=== PATIENT | female | born 1970 | race Hispanic/Latino ===

== ENCOUNTER 2017-06-13 00:37 | Observation (INO) | payer BC, SELFPAY ==
[2017-06-13 01:23] LABS: #Basophils 0.1 thou/uL (0.0-0.2); #Eosinphils 0.2 thou/uL (0.0-0.7); #Lymphocytes 3.6 thou/uL (1.20-3.40); #Monocytes 0.9 thou/uL (0.11-0.59); %Basophils 0.8 % (0.0-1.0); %Eosinophils 1.7 % (0.0-10.0); %Lymphocytes 30.4 % (21.0-51.0); %Monocytes 7.9 % (0.0-10.0); Hematocrit 46.2 % (36.0-47.0); Mean Platelet Volume 7.6 fL (7.4-10.4); Red Blood Cell (RBC) Count 4.96 mill/uL (4.20-5.40); White Blood Cell (WBC) Count 11.8 thou/uL (4.8-10.8)
[2017-06-13 01:49] LABS: ALT (SGPT) 30 U/L (8-55); AST (SGOT) 24 U/L (5-34); Alkaline Phosphatase 119 U/L (40-150); Anion Gap 17 mmol/L (10-20); BUN (Urea Nitrogen) 13 mg/dL (7.0-18.7); Bilirubin, Total 0.3 mg/dL (0.2-1.2); CK (CPK) 86 U/L (29-168); Calc. Creatinine Clearance 0 mL/min (70-130); Carbon Dioxide 20 mmol/L (22-29); Chloride 103 mmol/L (98-107); Estimated GFR-MDRD 81; Globulin 3.5 g/dL (2.4-3.5); Lipase 29 U/L (8-78); Protein, Total 7.7 g/dL (6.0-8.3)
[2017-06-13 01:54] LABS: Troponin I Less than 0.010 ng/mL (< 0.028)
[2017-06-13] MEDS ORDERED: Nitroglycerin 0.4 MG TAB (25 Tab Bottle) ONE (01:55)
[2017-06-13] MEDS ORDERED: Acetaminophen 325 MG TAB ONE (02:46)
[2017-06-13] MEDS ORDERED: Acetaminophen 325 MG TAB PO PRN (04:18)
[2017-06-13] MEDS ORDERED: Aspirin 325 MG TAB PO SCH ×2 (04:30→09:00)
[2017-06-13 04:32] VITALS: BMI 34.6
[2017-06-13 05:16] LABS: Troponin I Less than 0.010 ng/mL (< 0.028)
[2017-06-13] MEDS ORDERED: Ondansetron ODT 4 MG TAB PO PRN (05:21)
[2017-06-13] MEDS ORDERED: Labetalol HCl 100 MG/20 ML VIAL SLOW IVP PRN (05:28)
[2017-06-13] MEDS: Ibuprofen 600 MG TAB PO PRN ×2 (07:57→18:12)
[2017-06-13 08:02] LABS: Hemoglobin A1c 5.6 % (4.0-6.0)
[2017-06-13 08:20] LABS: Troponin I Less than 0.010 ng/mL (< 0.028)
[2017-06-13] MEDS ORDERED: FLU VACC QS2017-18 36 mo. & older 0.5 ML SYRINGE IM ONE (09:00)
--- NOTE | 2017-06-13 09:28 | RAD ---
CHEST 1 VIEW: HISTORY: Chest pain. COMPARISON: 02/07/12. FINDINGS: Cardiac silhouette is magnified by projection. Pulmonary vasculature is unremarkable. Mediastinum is midline. There is no lobar consolidation or evidence of pneumothorax. IMPRESSION: No active cardiopulmonary abnormalities are demonstrated. POS: [facility]
[2017-06-13] MEDS: Nitroglycerin 0.4 MG TAB (25 Tab Bottle) SL PRN ×2 (10:13→10:21)
[2017-06-13] MEDS: Acetaminophen 325 MG TAB PO PRN ×2 (10:28→20:11)
[2017-06-13] MEDS ORDERED: hydrOXYzine 25 MG TAB PO SCH (10:45)
[2017-06-13] MEDS ORDERED: Nitroglycerin 2% Ointment 1 INCH/1 GM Packet TOP SCH ×2 (11:45→21:00)
[2017-06-13] MEDS: Nitroglycerin 2% Ointment 1 INCH/1 GM Packet TOP SCH ×2 (12:28→18:12)
[2017-06-13] MEDS ORDERED: Communication Order-Pharmacy FS SCH (13:00)
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
--- NOTE | 2017-06-13 17:09 | CON ---
DATE OF CONSULTATION: 06/13/2017 CARDIOLOGY CONSULT REPORT PRIMARY HPLC CHEMIST: Adri Parker M.D. REASON FOR CARDIOLOGY CONSULT: Chest pain. HISTORY OF PRESENT ILLNESS: Mr. Springer is a 47-year-old female with no significant medical history and previous medical history who presented to [facility] for pressure-like pain in the chest for 2 weeks. During the assessment, the patient reports that pressure in her chest became worse, even though she is taking aspirin 2-6 tablets a day. Also same time, she had experienced of near syncope, dizziness and weakness. Prior to this admission, she has had to stop walking for catching up her breath while she is shopping at the grocery store. She also complains of the pain, heaviness , pressure-like pain in her left chest and gastroesophageal pain with nausea, and numbness in bilateral upper extremities. She have complained of dizziness for several months. Her dizziness improved with drinking coke so that she not sure if she really have any cardiovascular related symptom or hypoglycemia; however, she does not have a primary care doctor and she have not see the doctor for a while at least in the 3 or 4 years. She smokes 6 cigarettes per day. She had a history of cervical cancer and tumor were removed, but she cannot remember when. She does not know the results because she has not gone back to for her follow up since. She denied any bleeding, discharge or discomfort or pain at the area or her lower abdominal area. PAST MEDICAL HISTORY: No significant medical history. PAST SURGICAL HISTORY: Cervical cancer removed. FAMILY HISTORY: The patient's father due to myocardial infarction when he was 65 years old. The patient's mother has a history of asthma. No family history of hypertension or diabetes or CVA in her family. SOCIAL HISTORY: The patient is and lives with her and 5 children who are all alive and well. She smokes six cigarettes a day at least, but she denies ETOH or illicit drug abuse. ALLERGIES: No known drug allergies. HOME MEDICATIONS: She does not take any scheduled medication either prescription or [id number] medications; however, she reports that she has taken 6-8 aspirin a day for several days prior to this admission for chest pain or discomfort. REVIEW OF SYSTEMS: The following complete review of systems was negative, unless otherwise mentioned in the HPI or below. CONSTITUTIONAL: Weight loss, weight gain, sense of well being, ability to conduct usual activities, exercise tolerance. SKIN: Rash, itching, change in hair growth or loss, nail change. BREAST: Lump tenderness, swelling, nipple discharge. EYES: Vision change, double vision, tearing, blind spots or pain. HEENT: Headache, vertigo, lightheadedness, nose bleeding, obstruction or discharge, dental difficulty, gingival bleeding, dentures, neck stiffness, pain , tenderness, mass in the thyroid or other areas. CARDIOVASCULAR: She denied palpitations, syncope, nocturnal dyspnea, edema, cyanosis, hypertension, heart murmur, claudication. RESPIRATORY: Shortness of breath, wheezing, stridor, cough, hemoptysis. GASTROINTESTINAL: Poor appetite, dysphagia, indigestion, abdominal pain, heartburn, nausea, vomiting, hematemesis, jaundice, constipation, diarrhea, abnormal stool or recent change in bowel habit. GENITOURINARY: Urgency, frequency, dysuria, nocturia, hematuria, polyuria, oliguria, unusual color of urine. MUSCULOSKELETAL: Pain, swelling, redness or heat of muscle or joint, limitation, of motion, muscular weakness, atrophy, cramps. NEUROLOGIC: Seizure conversion, paralysis, tremor, incoordination. PSYCHIATRIC: Emotional problem, anxiety, depression, previous psychiatric care , unusual perceptions, hallucinations, but she reports that she is under stress taking care of the patient's family. PHYSICAL ASSESSMENT EXAM: VITAL SIGNS: Blood pressure 116/63, heart rate 53, respiratory rate 16, temperature 98.3, and O2 sat 95% with room air. GENERAL: Well-developed, overweight, well-nourished without acute distress. HEAD: Normocephalic and atraumatic. EYES: Extraocular muscle movements are intact. ENT: Oral and nose mucosa are moist without lesion. NECK: No JVD. Neck supple with normal range of motion. LUNGS: Clear to auscultate bilaterally. No wheezing, rales or rhonchi noted. CARDIOVASCULAR: Regular rate and rhythm, normal S1, S2. There are no S3 or S4. No significant murmur, hives, thrill, bruit or rub noted. There are 2+ pulses in the bilateral dorsal pedis, posterior tibial, popliteal and femoral arteries. Carotid pulses are present without bruit or thrill. No edema in her bilateral lower extremities. ABDOMEN: Soft and nontender or mass to palpate. Nondistended. Bowel sounds are present. MUSCULOSKELETAL: Able to move all extremities. SKIN: Warm and dry. No skin rash, lesion or bruise noted. NEUROLOGIC: Alert, oriented x4, awake, normal affect and nonfocal. PSYCHIATRIC: Mood and affect are normal. EKG: A 12-lead EKG shows sinus rhythm with T-wave inversion in everywhere 12- lead inversions. LABORATORY DATA: WBC 11.8, hemoglobin 15.9, hematocrit 46.2, and platelet 213. Sodium 136, potassium 3.7, BUN 13, creatinine 0.77, AST 24, and ALT 30. Hemoglobin A1c was 5.6, total cholesterol at 159, triglyceride is 177, HDL 35, LDL 89, CK-MB 1.2. Troponin 3 sets are negative and TSH is 5.5545. ASSESSMENT AND PLAN: 1. Unstable angina. Although, her cardiac enzymes are negative, due to her 12- lead electrocardiogram with T-wave inversion, her symptoms which improved with nitroglycerin administration, and also family history of myocardial infarction , the patient will undergo cardiac catheterization tomorrow. 2. Hypothyroidism. The patient's TSH was 5.5545. At this moment, she does not have any thyroid medications. Some thyroid medications may beneficial to this patient to treat for hypothyroidism. 3. Borderline diabetes. The patient's hemoglobin A1c today was 5.6 and is still within normal range. Diet education was given to the patient. Thank you very much for following the Cardiology Service to participate in care of this patient. We will follow along with the patient care team and make further recommendations as appropriate. EDDIE
--- NOTE | 2017-06-13 20:28 | ADD-CON ---
ADDENDUM DATE OF CONSULTATION: 06/13/2017 INDICATION FOR CONSULTATION: A 47-year-old female with chest pain and abnormal EKG changes. She st arted having some chest discomfort. She has had this for quite some time and it seems to be worse w ith activity. She did have an EKG, which shows diffuse T-wave inversions in the inferior and latera l leads, very suspicious for ischemia. This is somewhat atypical presentation that she does have pa in on palpation of the anterior chest. She does not have any significant risk factors for coronary artery disease. She has no history of tobacco abuse, hypertension or diabetes. She does have some family history of coronary artery disease. She has no history of tobacco abuse. She continues to h ave some chest pressure. Her cardiac enzymes have been unremarkable, but given her presentation and overall symptoms with significant EKG changes, it was felt best that we proceed with a cardiac cath eterization for evaluation of her coronary artery status. I did note, however, she says she is not a diabetic, but did note that her blood sugar was 159 and this will need to be evaluated. She certa inly may be a diabetic and is not aware that she is, but the cardiac enzymes are unremarkable. Ginny blair of her laboratory data is also unremarkable. Her LDL level was only 89. I did explain to her via an spanish interpreter that we will proceed with cardiac catheterization tomorrow hopefully using a rad ial approach. I explained the procedure and the risks to her to include bleeding, infection, possib ility of myocardial infarction, CVA, renal insufficiency, allergic contrast reaction and even the po ssibility of and she understands and agrees to proceed. We will plan for cardiac catheterizat ion tomorrow. For her past medical history, social history and review of systems and remaining port ion of the H\T\P, please refer to the notes already dictated by the nurse practitioner. I reviewed her notes. We have discussed the case and I would agree with her overall assessment.
[2017-06-13] MEDS ORDERED: Atorvastatin Calcium 20 MG TAB PO SCH (21:00)
[2017-06-14] MEDS: Nitroglycerin 2% Ointment 1 INCH/1 GM Packet TOP SCH ×2 (01:10→05:39)
[2017-06-14 04:37] LABS: Anion Gap 12 mmol/L (10-20); BUN (Urea Nitrogen) 13 mg/dL (7.0-18.7); Calc. Creatinine Clearance 150 mL/min (70-130); Calcium 8.9 mg/dL (7.8-10.44); Carbon Dioxide 23 mmol/L (22-29); Chloride 108 mmol/L (98-107); Estimated GFR-MDRD 90
--- NOTE | 2017-06-14 06:13 | PDOC.FM ---
- Subjective Subjective: Patient states she is ready to get the cardiac cath today. She is doing well, no complaints or concerns. Denies chest pain currently. Denies n/v/d/abd pain, dyspnea. - Objective MAR Reviewed: Yes Vital Signs & Weight: Vital Signs (12 hours) Temp Pulse Resp BP Pulse Ox 06/14/17 04:05 97.7 F 66 14 100/52 L 93 L 06/13/17 20:05 98.5 F 78 16 119/59 L 95 Weight Weight 94.347 kg I&O: 06/12/17 06/13/17 06/14/17 06:59 06:59 06:59 Intake Total 120 480 Output Total 400 Balance -280 480 Result Diagrams: 06/14/17 04:09 06/14/17 04:09 EKG Reviewed by me: Yes Radiology Reviewed by me: Yes Phys Exam - Physical Examination Constitutional: NAD HEENT: moist MMs, sclera anicteric Neck: no JVD, supple, full ROM Respiratory: no wheezing, no rales, no rhonchi, clear to auscultation bilateral Cardiovascular: RRR, no significant murmur, no rub Gastrointestinal: soft, non-tender, no distention Musculoskeletal: no edema, pulses present Neurological: non-focal, moves all 4 limbs Psychiatric: normal affect, A&O x 3 Skin: no rash Dx/Plan (1) Unstable angina Status: Acute Plan: Chest pain at rest, responds to nitro, ST changes on EKG -Cardiology consults -Cardiac Cath today -PRN nitro, statin started, beta jennifer -cards recs (2) GERD (gastroesophageal reflux disease) Code(s): K21.9 - GASTRO-ESOPHAGEAL REFLUX DISEASE WITHOUT ESOPHAGITIS Status: Acute Plan: Symptoms responded to PPI at one point -Continue PPI (3) Hypothyroidism Code(s): E03.9 - HYPOTHYROIDISM, UNSPECIFIED Status: Acute Plan: TSH of 5.55 -checking free T4 (4) Tobacco use Code(s): Z72.0 - TOBACCO USE Status: Acute Plan: Counselled on cessation - Plan Plan: Cardiac Cath today. Will continue current management and follow cardiology recommendations.
[2017-06-14] MEDS: Ibuprofen 600 MG TAB PO PRN ×2 (06:40→15:16)
[2017-06-14 06:42] LABS: #Eosinphils 0.2 thou/uL (0.0-0.7); #Lymphocytes 2.3 thou/uL (1.20-3.40); #Monocytes 0.6 thou/uL (0.11-0.59); #Neutrophils 4.9 thou/uL (1.40-6.50); %Basophils 0.6 % (0.0-1.0); %Eosinophils 2.7 % (0.0-10.0); %Lymphocytes 28.7 % (21.0-51.0); %Monocytes 7.7 % (0.0-10.0); Hematocrit 44.7 % (36.0-47.0); Red Blood Cell (RBC) Count 4.74 mill/uL (4.20-5.40); White Blood Cell (WBC) Count 8.1 thou/uL (4.8-10.8)
[2017-06-14] MEDS: Nitroglycerin 0.4 MG TAB (25 Tab Bottle) SL PRN (10:25)
[2017-06-14] MEDS ORDERED: Nitroglycerin 100MG/250ML BOT 250 ML ONE (11:30)
[2017-06-14] MEDS ORDERED: Heparin 10,000 UNITS/1 ML VIAL ONE (11:30)
[2017-06-14 12:08] VITALS: BP 144/87; TEMP 97.6
[2017-06-14] MEDS ORDERED: Sodium Chloride 0.9% 200 ML IV SCH (12:08)
[2017-06-14] MEDS ORDERED: Acetaminophen/Codeine 30-300mg Tablet PO PRN ×2 (12:08)
[2017-06-14] MEDS ORDERED: Nitroglycerin 0.4 MG TAB (25 Tab Bottle) SL PRN (12:08)
[2017-06-14] MEDS ORDERED: traMADol HCl 50 MG TAB PO PRN (12:08)
--- NOTE | 2017-06-14 14:11 | ADD-PRG ---
DATE OF SERVICE: 06/14/2017 This is an addendum to the note of Dr. Sarmad Barron. Ms. Springer was admitted with some atypical chest pain. However, repeat EKG showed development of is chemic T-waves. She has been seen by Cardiology. She is to be taken for a cardiac catheterization later this afternoon.
[2017-06-14] MEDS ORDERED: Iopamidol 370 76% 100 ML VIAL ONE (15:18)
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
== END 2017-06-14 16:22 | disposition home or self-care (01) ==
LOC: ERS 00:37 → 2SW 04:05
PROVIDERS: ADMIT Family Medicine; ATTEND Family Medicine
DX: R07.89 Other chest pain (principal); K21.9 Gastro-esophageal reflux disease without esophagitis; E03.9 Hypothyroidism, unspecified; F17.200 Nicotine dependence, unspecified, uncomplicated; Z79.899 Other long term (current) drug therapy; Z90.710 Acquired absence of both cervix and uterus; Z82.49 Family history of ischemic heart disease and other diseases of the circulatory system
CPT/HCPCS: 36415; 71010; 80048; 80053; 80061; 82553; 83036; 83690; 83880; 84439; 84443; 84484; 85025; 90471; 90682; 90732; 93005; 93010; 93458; 96374; C1769; G0008; G0009; G0378; J1644; J2270; Q0162; Q2036

== ENCOUNTER 2022-12-06 19:01 | Emergency (ER) | payer SELFPAY ==
[~2022-12-06 19:01] MED LIST: Iopamidol-370 76% 500 ML MDV (1 ML CHARGE) ONE
[2022-12-06 19:25] LABS: #Eosinphils 0.1 thou/uL (0.0-0.7); #Lymphocytes 3.4 thou/uL (1.20-3.40); #Monocytes 0.9 thou/uL (0.11-0.59); #Neutrophils 5.7 thou/uL (1.40-6.50); %Basophils 0.4 % (0.0-1.0); %Eosinophils 1.1 % (0.0-10.0); %Lymphocytes 33.7 % (21.0-51.0); %Monocytes 8.5 % (0.0-10.0); %Neutrophils 56.3 % (42.0-75.0); Hemoglobin 16.7 g/dL (12.0-16.0); Mean Corpuscular HGB CONC 34.9 g/dL (32.0-36.0); Mean Corpuscular Hemoglobin 32.3 pg (27.0-31.0); Mean Corpuscular Volume 92.5 fl (78.0-98.0); Mean Platelet Volume 7.9 fL (7.4-10.4); Platelet Count 200 10x3/uL (130-400); RBC Distribution Width 12.2 % (11.5-14.5); Red Blood Cell (RBC) Count 5.15 mill/uL (4.20-5.40); White Blood Cell (WBC) Count 10.1 10x3/uL (4.8-10.8)
[2022-12-06 19:42] LABS: Bilirubin Negative (Negative); Blood, Urine Negative (Negative); Clarity Clear (Clear); Glucose, Urine (Dipstick) Greater than 1000 mg/dL (Negative); Ketone, Urine Negative (Negative); Leukocyte Negative Leu/uL (Negative); Nitrite Negative (Negative); Protein, Urine (Dipstick) Negative (Neg-Trace); Specific Gravity, Urine 1.016 (1.002-1.036); Urobilinogen Normal mg/dL (Less than 2)
[2022-12-06 19:45] LABS: ALT (SGPT) 27 U/L (8-55); AST (SGOT) 15 U/L (5-34); Albumin 4.4 g/dL (3.5-5.0); Alkaline Phosphatase 132 U/L (40-110); Anion Gap 15 mmol/L (10-20); BUN (Urea Nitrogen) 13 mg/dL (9.8-20.1); Bilirubin, Total 0.2 mg/dL (0.2-1.2); Calc. Creatinine Clearance 0 mL/min (70-130); Calcium 9.6 mg/dL (7.8-10.44); Carbon Dioxide 20 mmol/L (22-29); Chloride 104 mmol/L (98-107); Estimated GFR 84; Globulin 3.2 g/dL (2.4-3.5); Glucose 339 mg/dL (70-105); Lipase 44 U/L (8-78); Potassium 4.2 mmol/L (3.5-5.1); Protein, Total 7.6 g/dL (6.0-8.3); Sodium 135 mmol/L (136-145)
[2022-12-06] MEDS ORDERED: Ondansetron PF 4 MG/2 ML Vial ONE (20:44)
[2022-12-06] MEDS ORDERED: Ketorolac Tromethamine 30 MG/ML VIAL ONE (20:44)
[2022-12-06] MEDS ORDERED: Morphine 4 MG/ML VIAL ONE (20:44)
[2022-12-06 21:47] LABS: BHCG - Serum Negative (NEGATIVE); Pregs Control Background? CLEAR/WHITE (CLR/WHITE); Pregs Control Bar Appear? YES (CONTROL BAR)
[2022-12-06] MEDS ORDERED: Dicyclomine 20 MG/2 ML VIAL ONE (21:53)
== END 2022-12-06 22:22 | disposition home or self-care (01) ==
LOC: ERS 19:01
DX: R10.32 Left lower quadrant pain (principal); F17.210 Nicotine dependence, cigarettes, uncomplicated
CPT/HCPCS: 36415; 74177; 80053; 81003; 83690; 84703; 85025; 96372; 96374; 96375; J1885; J2270; J2405; Q9967